=== PATIENT | male | born 1965 | race Caucasian/White ===

== ENCOUNTER 2016-08-03 12:16 | Inpatient (IN) | payer MEDICAID ==
[~2016-08-03] VITALS: Ht 170.2 cm; Wt 64.9 kg
[2016-08-03] MEDS ORDERED: SODIUM CHLORIDE 0.9% 1,000 ML ONE ×2 (12:54→16:55)
[2016-08-03] MEDS ORDERED: ONDANSETRON 4 MG VIAL ONE (13:04)
[2016-08-03] MEDS ORDERED: MULTIVITS ADULT INJ 10 ML, THIAMINE 100 MG, FOLIC ACID INJ 1 MG in SODIUM CHLORIDE 0.9%... IV ONE ×3 (13:05)
[2016-08-03] MEDS ORDERED: CEFTRIAXONE 1 GM VIAL ONE (16:54)
[2016-08-03] MEDS ORDERED: SODIUM CHLORIDE 0.9% 100 ML IV ONE (16:55)
[2016-08-03] MEDS ORDERED: HALOPERIDOL 1 MG TAB PO PRN (17:00)
[2016-08-03 18:40] VITALS: BP_SYST 125; BP_SYST 127; RESP 18; TEMP 98.2; BMI 23.5
[2016-08-03 19:30] VITALS: BP_SYST 135; RESP 18; TEMP 97.9; Ht 170.2 cm; Wt 64.9 kg
[2016-08-03] MEDS: D5-1/2-NS W/KCL 20MEQ/L 1,000 ML IV SCH (19:44)
[2016-08-03] MEDS: THIAMINE 100 MG TAB PO SCH (19:45)
[2016-08-03] MEDS: FOLIC ACID 1 MG TAB PO SCH (19:45)
[2016-08-03] MEDS: ONDANSETRON 4 MG VIAL IV PRN (20:34)
[2016-08-03] MEDS: ATENOLOL 25 MG TAB PO SCH (20:58)
[2016-08-03] MEDS: BACLOFEN 10 MG TAB PO SCH (20:58)
[2016-08-03 21:30] VITALS: BP_SYST 141; RESP 20; TEMP 98.7
[2016-08-03] MEDS: LORAZEPAM 2 MG/ML VIAL IV PRN (22:59)
[2016-08-03 23:30] VITALS: BP_SYST 139; RESP 18; TEMP 98.7
[2016-08-04] VITALS (11 sets, daily range): BP systolic 109–162; RESP 16–20; TEMP 98.2–100.6
[2016-08-04] MEDS: D5-1/2-NS W/KCL 20MEQ/L 1,000 ML IV SCH ×2 (05:31→16:56)
[2016-08-04] MEDS: THIAMINE 100 MG TAB PO SCH (08:50)
[2016-08-04] MEDS: BACLOFEN 10 MG TAB PO SCH ×3 (08:50→20:26)
[2016-08-04] MEDS: FOLIC ACID 1 MG TAB PO SCH (08:50)
[2016-08-04] MEDS: ATENOLOL 25 MG TAB PO SCH ×2 (08:50→20:27)
[2016-08-04] MEDS: ONDANSETRON 4 MG VIAL IV PRN (14:57)
[2016-08-04] MEDS: LORAZEPAM 2 MG/ML VIAL IV PRN ×2 (14:58→23:55)
[2016-08-04] MEDS ORDERED: CEFTRIAXONE 1 GM in SODIUM CHLORIDE 0.9% 50 ML IV ONE (16:15)
[2016-08-04] MEDS ORDERED: LORAZEPAM 2 MG/ML VIAL IV PRN (19:15)
[2016-08-05] VITALS (9 sets, daily range): BP systolic 99–137; RESP 16; TEMP 97.8–98.9
[2016-08-05] MEDS: D5-1/2-NS W/KCL 20MEQ/L 1,000 ML IV SCH ×3 (03:33→22:43)
[2016-08-05] MEDS: THIAMINE 100 MG TAB PO SCH (08:51)
[2016-08-05] MEDS: BACLOFEN 10 MG TAB PO SCH ×3 (08:51→20:32)
[2016-08-05] MEDS: FOLIC ACID 1 MG TAB PO SCH (08:52)
[2016-08-05] MEDS: ATENOLOL 25 MG TAB PO SCH ×2 (08:52→20:33)
[2016-08-05] MEDS: CEFTRIAXONE 1 GM in SODIUM CHLORIDE 0.9% 50 ML IV SCH (08:53)
[2016-08-05] MEDS: LORAZEPAM 2 MG/ML VIAL IV PRN ×3 (09:12→13:11)
[2016-08-05] MEDS: DUONEB INH SCH ×4 (11:40→22:33)
[2016-08-05] MEDS: QUEtiapine 25 MG TAB PO SCH (20:33)
[2016-08-06] MEDS: DUONEB INH SCH ×6 (03:14→22:43)
[2016-08-06 03:16] VITALS: BP_SYST 114; RESP 18; TEMP 97.8
[2016-08-06 07:45] VITALS: BP_SYST 124; RESP 18; TEMP 98.1
[2016-08-06] MEDS: FOLIC ACID 1 MG TAB PO SCH (08:52)
[2016-08-06] MEDS: BACLOFEN 10 MG TAB PO SCH ×3 (08:52→20:13)
[2016-08-06] MEDS: CEFTRIAXONE 1 GM in SODIUM CHLORIDE 0.9% 50 ML IV SCH (08:52)
[2016-08-06] MEDS: THIAMINE 100 MG TAB PO SCH (08:52)
[2016-08-06] MEDS: D5-1/2-NS W/KCL 20MEQ/L 1,000 ML IV SCH ×2 (08:53→20:12)
[2016-08-06] MEDS: ATENOLOL 25 MG TAB PO SCH ×2 (09:00→20:13)
[2016-08-06 14:53] VITALS: BP_SYST 137; RESP 16; TEMP 97.6
[2016-08-06 19:17] VITALS: RESP 16
[2016-08-06] MEDS: QUEtiapine 25 MG TAB PO SCH (20:13)
[2016-08-06 20:24] VITALS: BP_SYST 149; RESP 18; TEMP 97.8
[2016-08-06 23:59] VITALS: BP_SYST 123; RESP 16; TEMP 98.3
[2016-08-07] MEDS: DUONEB INH SCH ×4 (02:43→14:42)
[2016-08-07 04:29] VITALS: BP_SYST 137; RESP 18; TEMP 98.4
[2016-08-07 08:18] VITALS: BP_SYST 136; RESP 18; TEMP 97.9
[2016-08-07] MEDS: THIAMINE 100 MG TAB PO SCH (09:01)
[2016-08-07] MEDS: BACLOFEN 10 MG TAB PO SCH ×2 (09:01→16:21)
[2016-08-07] MEDS: ATENOLOL 25 MG TAB PO SCH (09:02)
[2016-08-07] MEDS: FOLIC ACID 1 MG TAB PO SCH (09:02)
[2016-08-07] MEDS: CEFTRIAXONE 1 GM in SODIUM CHLORIDE 0.9% 50 ML IV SCH (09:06)
[2016-08-07 11:06] VITALS: BP_SYST 124; RESP 18; TEMP 98
[2016-08-07] MEDS: D5-1/2-NS W/KCL 20MEQ/L 1,000 ML IV SCH (11:31)
[2016-08-07] MEDS ORDERED: MAGNESIUM SULF 1 GM/100 ML 100 ML IV ONE (13:50)
[2016-08-07 15:24] VITALS: BP_SYST 127; RESP 18; TEMP 97.8
[2016-08-07 15:39] VITALS: BP_SYST 127; RESP 18; TEMP 97.8
== END 2016-08-07 17:49 | disposition home or self-care (01) | DRG 190 ==
LOC: ENRESERVTM → ENRESERVDT → ER 12:16 → UNDOADMOB 16:56 → EMR 16:56 → INTOOBSV 16:56 → OBSVTOIN 16:56 → EMR 18:21 → 4THW 18:21 → OBSVTOIN 08-05 04:15 → 4THW 08-05 04:15 → ENPENDDIS 08-05 04:15 → EMR 08-05 04:15
PROVIDERS: ADMIT Internal Medicine; ATTEND Internal Medicine
DX: J44.0 Chronic obstructive pulmonary disease with (acute) lower respiratory infection (principal); J18.9 Pneumonia, unspecified organism; F10.239 Alcohol dependence with withdrawal, unspecified; J44.1 Chronic obstructive pulmonary disease with (acute) exacerbation; G40.909 Epilepsy, unspecified, not intractable, without status epilepticus; F17.210 Nicotine dependence, cigarettes, uncomplicated; E83.42 Hypomagnesemia; W11.XXXS Fall on and from ladder, sequela; S22.42XG Multiple fractures of ribs, left side, subsequent encounter for fracture with delayed healing
CPT/HCPCS: 36415; 71020; 71250; 80053; 80307; 80320; 82150; 82553; 83605; 83690; 83735; 84100; 84484; 85025; 85610; 85730; 87040; 87071; 93005; 94640; 94799; 96361; 96365; 96366; 96367; 99222; 99232; 99239